=== PATIENT | female | born 1975 | race Caucasian/White ===

== ENCOUNTER 2023-11-09 08:07 | Outpatient (CLI) | payer OTHER, SELFPAY ==
--- NOTE | 2023-11-09 08:15 | MR_ITS ---
[facility] [address] [facility] [address] Phone:?[phone] Fax:?[phone] Referring Physician Information: Jhoan Martini M.D. [address] [place] [id number] Phone:?[phone] Fax:?[phone] Patient:Flakito Hernandez D.O.B:?1975 Sex:?Female Phone:?[phone] [facility] MRN:?[id number] Exam Date:?11/09/2023 EXAM: MRI EXAMINATION OF THE LEFT KNEE CLINICAL INFORMATION: Left knee pain. No specific injury. No history of surgery to this area. Suspected meniscal tear. TECHNICAL INFORMATION: Coronal PD and STIR. Axial PD and T2 fat saturation. Sagittal PD and PD fat saturation images acquired. No prior studies for comparison. INTERPRETATION: Bones: Mild to moderate marrow edema signal involves the periphery of the medial femoral condyle, without evidence for a fracture. Subchondral edema signal and cystic changes involving the patellofemoral compartment. No other abnormal bone marrow edema pattern is identified. Ligaments and tendons: The medial collateral ligament is intact, without acute sprain or tear. The iliotibial band, fibular collateral ligament, biceps femoris tendon and popliteus tendon all are intact. The anterior cruciate ligament is intact without acute sprain or tear. The posterior cruciate ligament is intact. Extensor Mechanism: The patellar and quadriceps tendons are intact. The medial and lateral retinacula are intact. Knee Joint: There is a large knee joint effusion. There is a small to moderate-sized popliteal cyst with a mild appearance of leakage. Series 6 image 16 appear to demonstrate tiny 2 mm loose body within the posterior midline joint. Medial Compartment: There is a somewhat thickened and irregular appearance of peripheral vertical tearing involving the posterior horn medial meniscus. There is free edge tearing with mild irregularity and truncation towards the far posterior horn and continuing into the posterior root insertion. No displaced flap fragment or parameniscal cyst. 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 No other significant changes of chondromalacia. Lateral Compartment: There is no evidence for discrete lateral meniscal tear. No displaced flap fragment or parameniscal cyst. There is no focal chondral defect. No other significant changes of chondromalacia. Patellofemoral articulation: There is a 1.6 x 0.5 cm segment of grade 3 to IV chondromalacia superior to the midportion of midline patella and lateral facet. Additional grade 3 and IV chondromalacia involves the inferior one third of the lateral patellar facet. There are grade 3 and 4 changes of chondromalacia throughout much the periphery of the lateral trochlear groove. CONCLUSION: 1. Somewhat thickened and irregular peripheral vertical tearing of the posterior horn medial meniscus. Additional free edge tearing with mild irregularity and truncation towards the far posterior horn and into the posterior root insertion. 2. There is a 2.2 x 0.4 cm segment of grade III to IV chondromalacia involving the weightbearing surface the medial femoral condyle. 3. Mild to moderate marrow edema signal involves the periphery of the medial femoral condyle, may be related to osseous contusion or reactive change. 4. No lateral meniscal tear. The cruciate ligaments are intact. 5. Patchy areas of grade III-IV patellofemoral chondromalacia with subchondral edema signal and cystic change. 6. There is a large knee joint effusion. Apparent tiny loose body within the posterior midline joint. KES Electronically signed on 11/09/2023 11:46:00 AM by Gamaliel Barger M.D.
== END 2023-11-09 08:08 | disposition home or self-care (01) ==
PROVIDERS: PCP Family Medicine; Visit Provider Orthopaedic Surgery
DX: M25.562 Pain in left knee (principal); S83.222A Peripheral tear of medial meniscus, current injury, left knee, initial encounter; M94.262 Chondromalacia, left knee; M25.462 Effusion, left knee
CPT/HCPCS: 73721